=== PATIENT | female | born 1970 | race Caucasian/White ===

== ENCOUNTER → 2020-03-28 13:11 | Outpatient (CLI) | payer OTHER, SELFPAY ==
--- NOTE | ~2020-03-28 | MM_ITS ---
EXAMINATION: MM screening kaitlin BI w kisha HISTORY: Screening mammogram TECHNIQUE: Craniocaudal and mediolateral oblique 3-D tomosynthesis images were obtained and synthetic 2-D images were generated. CAD analysis was submitted and interpreted. COMPARISON: 01/30/2019, 01/28/2018, 02/11/2016 bilateral digital screening mammogram examinations BREAST PARENCHYMAL COMPOSITION: FINDINGS: There is no evidence of suspicious mass, calcification, or architectural distortion to sugg est malignancy in either breast. There has been no suspicious interval change. IMPRESSION: 1. No mammographic evidence of malignancy. 2. Recommend routine screening mammography in one year. BI-RADS Category 1: Negative Reviewed, dictated and finalized at location A.
== END ==
PROVIDERS: Visit Provider Nurse Practitioner
DX: Z12.31 Encounter for screening mammogram for malignant neoplasm of breast (principal)
CPT/HCPCS: 77063; 77067

== ENCOUNTER 2021-03-24 10:50 | Outpatient (CLI) | payer SELFPAY ==
--- NOTE | ~2021-03-24 | DEXA_ITS ---
Bone Density Report Name: Светлана Peterson Age: 50 Sex: Female Ethnicity: White Date of : 1970 Indication: postmenopausal; screening for osteoporosis; Referring Provider: [facility] ORR Study: Bone densitometry was performed. Exam Date: March 24, 2021 Accession number: [id number] Bone Density: Region BMD T-score Z-score Classification AP Spine (L1-L4) 1.118 0.6 1.4 Normal Femoral Neck (Left) 0.799 -0.4 0.3 Normal Total Hip (Left) 0.912 -0.2 0.2 Normal Femoral Neck (Right) 0.786 -0.6 0.2 Normal Total Hip (Right) 0.898 -0.4 0.1 Normal Total Hip Mean 0.905 -0.3 0.2 Normal World Health Organization criteria for BMD impression classify patients as: Normal (T-score at or above -1.0), Osteopenia (T-score between -1.0 and -2.5), or Osteoporosis (T-score at or below -2.5). 10-year Fracture Risk: FRAX not reported because: All T-scores for Spine Total, Hip Total, Femoral Neck at or above -1.0 Clinical Information Provided by Patient: Smokes Patient maximum height was 63.3 Menopause Age: 45 No regular weight bearing exercise Onset of menses at age 16 Number of children 0 Impression: The patient has normal bone mass. The patient has risk factors, including: smoking. Discussion: BONE DENSITY IS ABOVE THE MINIMUM DESIRABLE LEVEL AT ALL SKELETAL SITES TESTED. This patient?s bone mineral density is above the minimum desirable level (T-score -1.0 or better) at all sites measured. The patient should follow a healthful lifestyle (good nutrition with adequate calcium and vitamin D, and appropriate weight-bearing exercise). Follow-Up: Consider repeating this study in 5 years or sooner if there is some new clinical indication. Reported by: CHANDLER on 03/24/2021 11:12:00 AM. Reviewed, dictated and finalized at location AC[facility] CARRILLO
== END 2021-03-24 10:51 ==
PROVIDERS: Visit Provider Obstetrics & Gynecology Gynecology
DX: Z78.0 Asymptomatic menopausal state (principal)
CPT/HCPCS: 77080